=== PATIENT | male | born 1955 | race Caucasian/White ===

== ENCOUNTER → 2021-03-04 | Outpatient (CLI) | payer MEDICARE ==
[~2021-03-04] MED LIST: ALLO100 PO; ASPI325; COLC.6 PO; COLCHICINE0.6 MG PO; COLCRYS0.6 MG MT; CYCL10 PO; Coumadin5 MG PO; ENOX100I SC; ENOX120I SC; HYDACE5; HYDACE5 PO; INDO50 PO; Indomethacin50 MG PO; LISHYD2012 PO; Lisinopril2.5 MG; METPRE4DP PO; NAPR375; NAPR500 PO; NAPR550 PO; Naprosyn375 MG PO; Naprosyn500 MG PO; Norco 10-325 T1 EACH PO; Norco 5-325 Ta1 EACH PO; Percocet 5-3251 EACH PO; QUIN324; QUIN325; SIMV10; SIMV10 PO; SIMVASTATIN; Ultram50 MG PO; WARF2.5 PO; WARF5 PO
[2021-03-04 15:49] LABS: Bun/Creatinine Ratio 17.2 (12.0-20.0); Calcium, Blood 8.6 mg/dL (8.5-10.1); Creatinine, Blood 2.85 mg/dL (0.60-1.20); Potassium, Blood 4.1 mmol/L (3.5-5.5)
== END | disposition home or self-care (01) ==
LOC: LAB SHORT 15:39 → LAB 15:39
PROVIDERS: Physician Assistant Surgical
DX: R22.40 Localized swelling, mass and lump, unspecified lower limb (principal)
CPT/HCPCS: 80048

== ENCOUNTER → 2021-05-21 | Outpatient (CLI) | payer MEDICARE ==
[2021-05-21 10:37] LABS: BASOPHILS ABSOLUTE AUTO 0.03 K/mm3 (0.00-0.23); BASOPHILS PERCENT AUTO 1 % (0-2); EOSINOPHILS ABSOLUTE AUTO 0.13 K/mm3 (0.00-0.68); EOSINOPHILS PERCENT AUTO 3 % (0-6); Hematocrit 37.5 % (37.0-53.0); Hemoglobin 12.6 g/dL (13.5-17.5); IMMATURE GRAN ABSOLUTE AUTO 0.02 K/mm3 (0.00-0.10); IMMATURE GRAN PERCENT AUTO 0 % (0-1); LYMPHOCYTES ABSOLUTE AUTO 1.17 K/mm3 (0.84-5.20); LYMPHOCYTES PERCENT AUTO 22 % (21-46); MONOCYTES ABSOLUTE AUTO 0.56 K/mm3 (0.16-1.47); MONOCYTES PERCENT AUTO 11 % (4-13); Mean Corpuscular HGB 32.1 pg (26.0-34.0); Mean Corpuscular HGB Conc 33.6 g/dL (31.5-36.5); Mean Corpuscular Volume 96 fL (80-100); Mean Platelet Volume 9.1 fL (9.1-12.4); NEUTROPHILS ABSOLUTE AUTO 3.39 K/mm3 (1.96-9.15); NEUTROPHILS PERCENT AUTO 64 % (41-73); Platelet Count 250 K/mm3 (150-400); RDW Coefficient Variation 13.3 % (11.7-14.2); Red Blood Cell Count 3.92 M/mm3 (4.30-5.90)
[2021-05-21 10:55] LABS: Albumin, Blood 4.1 g/dL (3.4-5.0); Bilirubin, Total 0.6 mg/dL (0.1-1.0); Bun/Creatinine Ratio 18.5 (12.0-20.0); Calcium, Blood 9.1 mg/dL (8.5-10.1); Creatinine, Blood 1.57 mg/dL (0.60-1.20); Potassium, Blood 3.7 mmol/L (3.5-5.5); Thyroid Stimulating Hormone 0.912 uIU/mL (0.360-4.800); Total Protein, Blood 8.1 g/dL (6.4-8.2)
== END | disposition home or self-care (01) ==
LOC: LAB SHORT 10:30 → LAB 10:30
PROVIDERS: Physician Assistant Medical
DX: N17.9 Acute kidney failure, unspecified (principal); R60.9 Edema, unspecified; R53.83 Other fatigue
CPT/HCPCS: 80053; 83880; 84443; 85025; 85379

== ENCOUNTER 2021-08-27 20:09 | Inpatient (IN) | payer MEDICARE ==
[~2021-08-27] VITALS: Ht 170.2 cm; Wt 70.2 kg
[2021-08-27 20:51] LABS: BASOPHILS ABSOLUTE AUTO 0.03 K/mm3 (0.00-0.23); BASOPHILS PERCENT AUTO 0 % (0-2); EOSINOPHILS ABSOLUTE AUTO 0.01 K/mm3 (0.00-0.68); EOSINOPHILS PERCENT AUTO 0 % (0-6); Hematocrit 39.2 % (37.0-53.0); IMMATURE GRAN ABSOLUTE AUTO 0.12 K/mm3 (0.00-0.10); IMMATURE GRAN PERCENT AUTO 1 % (0-1); LYMPHOCYTES PERCENT AUTO 5 % (21-46); MONOCYTES ABSOLUTE AUTO 0.82 K/mm3 (0.16-1.47); MONOCYTES PERCENT AUTO 5 % (4-13); Mean Corpuscular HGB 30.7 pg (26.0-34.0); Mean Corpuscular HGB Conc 33.2 g/dL (31.5-36.5); Mean Corpuscular Volume 93 fL (80-100); Mean Platelet Volume 9.6 fL (9.1-12.4); NEUTROPHILS ABSOLUTE AUTO 13.42 K/mm3 (1.96-9.15); NEUTROPHILS PERCENT AUTO 89 % (41-73); Platelet Count 497 K/mm3 (150-400); RDW Coefficient Variation 13.4 % (11.7-14.2); RDW Standard Deviation 45.6 fL (35.1-46.3); Red Blood Cell Count 4.23 M/mm3 (4.30-5.90)
[2021-08-27 20:56] LABS: Source, Urine Clean Catch
[2021-08-27 20:57] LABS: Bilirubin, Urine Neg (Neg); Blood, Urine 5+ (Neg); Glucose Qualitative, Urine Neg (Neg); Ketones, Urine 1+ (Neg); Leukocyte Esterase, Urine 3+ (Neg); Nitrite, Urine Neg (Neg); Protein, Urine 3+ (Neg); Specific Gravity, Urine 1.015 (1.003-1.022); Urobilinogen, Urine NORM (Normal)
[2021-08-27 21:03] LABS: Appearance, Urine Cloudy (Clear); Color, Urine Brown (P-Yellow)
[2021-08-27 21:04] LABS: Alanine Aminotransfer (ALT/SGP 24 U/L (12-78); Albumin, Blood 2.8 g/dL (3.4-5.0); Albumin/Globulin Ratio 0.5 (0.8-1.8); Alk Phos 66 U/L (50-136); Anion Gap 14 mmol/L (6-16); Aspartate Aminotrans (AST/SGOT 31 U/L (12-37); Bilirubin, Total 0.9 mg/dL (0.1-1.0); Blood Urea Nitrogen 142 mg/dL (8-24); CO2, Blood 17 mmol/L (21-32); Calcium, Blood 9.1 mg/dL (8.5-10.1); Chloride, Blood 101 mmol/L (98-108); Creatinine, Blood 3.02 mg/dL (0.60-1.20); Ethanol (Alcohol), Blood, Med <3 mg/dL; Globulin, Blood 5.9 g/dL (2.2-4.0); Glomerular Filtration Rate 21 (60-); Glucose, Blood 141 mg/dL (70-99); Potassium, Blood 4.6 mmol/L (3.5-5.5); Sodium, Blood 132 mmol/L (136-145); Total Protein, Blood 8.7 g/dL (6.4-8.2)
[2021-08-27 21:05] LABS: Amorphous Heavy (0-Heavy); Bacteria Many /hpf; Mucus Light (0-Heavy); Red Blood Cells, Urine 25-50 /hpf (0-2); Squamous Epithelial Cells Few /hpf (Few)
[2021-08-27 21:09] LABS: U Amphetamine Screen Not Detected; U Barbituate Screen Not Detected; U Benzodiazapine Screen Not Detected; U Buprenorphine Screen Not Detected; U Cannabinoids Screen Not Detected; U Cocaine Screen Not Detected; U Methadone Screen Not Detected; U Methamphetamine Screen Not Detected; U Opiates Screen Not Detected; U Oxycodone Screen Not Detected; U Phencyclidine Screen Not Detected; U Propoxyphene Screen Not Detected
[2021-08-27 21:42] LABS: Creatine Kinase MB 27.6 ng/mL (0.0-3.6); Creatine Kinase MB Index 3.8 (0.0-4.0); Troponin I 0.091 ng/mL (0.000-0.040)
[2021-08-27 22:30] LABS: International Normalized Ratio 1.31; Prothrombin Time Results 13.5 Sec (9.7-11.5)
[2021-08-28 00:03] LABS: Influenza A, PCR NEGATIVE (NEGATIVE); Influenza B, PCR NEGATIVE (NEGATIVE); Resp Syncytial Virus, PCR NEGATIVE (NEGATIVE)
[2021-08-28 00:04] LABS: SARS-Cov-2 (COVID-19) PCR, MMC POSITIVE (NEGATIVE)
--- NOTE | 2021-08-28 05:59 | NUR ---
SHIFT SUMMARY ASSUMED CARE OF PT AT 0200. PT IS ALERT BUT ONLY ORIENTED TO SELF AND LOCATION. PT REPEATS HIMSELF CONSTANTLY; SAYING "MY FEET ARE COLD" AND "IM THIRSTY, GIVE ME WATER". PT WAS IN SINUSE AT 85 WHEN HE INITIALLY ARRIVED BUT CONVERTED TO AFIB WITH RVR. LOPRESSOR GIVEN WITH NO RESULT. HOSPITALIST HENNA WAS CALLED AND ORDERED CARDIZEM PUSH AND ORAL METOPROLOL. THIS WAS EFFECTED AND PT CONVERTS CAK TO SINUS IN THE 70'S. LUNG SOUNDS DIMINISHED, REMAINED ON RA. PT IS INCONTIENT OF URINE; URINE IS OUL SMELLING, DARK, AND CLOUDY. PT GIVEN BED BATH. PT BILATERAL EXTREMITIES ARE WARM UNTIL THE FEET WHICH ARE COOL TO TOUCH. FEET ARE DISCOLORED PURPLE, PEDAL PULSES HEARD ON DOPPLER. CALL LIGHT IN REACH, BED IN LOWEST POSITION.
[2021-08-28 08:18] LABS: Hematocrit 33.4 % (37.0-53.0); Hemoglobin 11.2 g/dL (13.5-17.5); Mean Corpuscular HGB 30.8 pg (26.0-34.0); Mean Corpuscular HGB Conc 33.5 g/dL (31.5-36.5); Mean Corpuscular Volume 92 fL (80-100); Mean Platelet Volume 9.6 fL (9.1-12.4); Platelet Count 382 K/mm3 (150-400); RDW Coefficient Variation 13.2 % (11.7-14.2); RDW Standard Deviation 44.5 fL (35.1-46.3); Red Blood Cell Count 3.64 M/mm3 (4.30-5.90); White Blood Cell Count 18.22 K/mm3 (4.00-11.30)
[2021-08-28 08:39] LABS: Albumin, Blood 2.4 g/dL (3.4-5.0); Albumin/Globulin Ratio 0.5 (0.8-1.8); Bun/Creatinine Ratio 42.3 (12.0-20.0); Calcium, Blood 8.4 mg/dL (8.5-10.1); Creatinine, Blood 2.98 mg/dL (0.60-1.20); Globulin, Blood 4.9 g/dL (2.2-4.0); Total Protein, Blood 7.3 g/dL (6.4-8.2)
[2021-08-28 10:45] LABS: Source, Urine Foley catheter
--- NOTE | 2021-08-28 11:00 | NUR ---
PATIENT ALERT TO SELF AND AWARE HE IS IN HOSPITAL. UNABLE TO ANSWER OTHER QUESTIONS. BILATERAL COMMERCIAL DIVER STRENGTH. FOLLOWING DIRECTIONS. PERRLA. NUMBNESS/TINGLING BILATERAL LOWER LEGS. ABLE TO TURN SELF IN BED. YELLS OUT, NOT USING CALL LIGHT. ON ROOM AIR, DENIES SOB. SATING ABOVE 94%. TELE SHOWING SINUS RHYTHM WITH HR 80'S. BP STABLE. EDEMA BILATERAL LOWER EXTREMITIES. BLE PURPLE/RED/PINK IN COLOR. VERY WARM TO TOUCH AND PAINFUL AT TIMES. PATIENT STATES THEY FEEL EXTREMLY COLD. PICTURES IN CHART. NOT INTERESTED IN BREAKFAST. DRINKING WATER AND JUICE. COMPLAINS OF SOME BLADDER PAIN. NICHOLAS CATHETER PLACED THIS AM. FOUL ORDER WITH SEDIMENT, NYASIA/RED IN COLOR. ATTENDS IN PLACE. HEPARIN AND NS INFUSING AT THIS TIME. WILL CONTINUE TO MONITOR.
[2021-08-28 11:14] LABS: Appearance, Urine Turbid (Clear); Bilirubin, Urine Neg (Neg); Blood, Urine 5+ (Neg); Color, Urine Amber (P-Yellow); Glucose Qualitative, Urine Neg (Neg); Ketones, Urine Neg (Neg); Leukocyte Esterase, Urine 3+ (Neg); Nitrite, Urine Neg (Neg); Protein, Urine 3+ (Neg); Specific Gravity, Urine 1.015 (1.003-1.022); Urobilinogen, Urine NORM (Normal)
[2021-08-28 11:23] LABS: Red Blood Cells, Urine 50-100 /hpf (0-2)
[2021-08-28 11:24] LABS: Amorphous Heavy (0-Heavy); Bacteria Many /hpf; Squamous Epithelial Cells Few /hpf (Few); Triple Phosphate Crystals Few /hpf
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
[2021-08-29 04:13] LABS: Hematocrit 28.3 % (37.0-53.0); Hemoglobin 9.2 g/dL (13.5-17.5); Mean Corpuscular HGB 30.6 pg (26.0-34.0); Mean Corpuscular HGB Conc 32.5 g/dL (31.5-36.5); Mean Corpuscular Volume 94 fL (80-100); Mean Platelet Volume 9.8 fL (9.1-12.4); Platelet Count 272 K/mm3 (150-400); RDW Coefficient Variation 13.4 % (11.7-14.2); RDW Standard Deviation 46.1 fL (35.1-46.3); Red Blood Cell Count 3.01 M/mm3 (4.30-5.90); White Blood Cell Count 10.73 K/mm3 (4.00-11.30)
[2021-08-29 04:35] LABS: Anti-Xa UFH, PHA Monitoring 0.6 IU/mL; D-Dimer, Quantitative 11.09 mg/L FEU (0.00-0.52)
[2021-08-29 04:43] LABS: Alanine Aminotransfer (ALT/SGP 39 U/L (12-78); Albumin, Blood 2.1 g/dL (3.4-5.0); Albumin/Globulin Ratio 0.5 (0.8-1.8); Alk Phos 48 U/L (50-136); Anion Gap 8 mmol/L (6-16); Aspartate Aminotrans (AST/SGOT 103 U/L (12-37); Bilirubin, Total 0.8 mg/dL (0.1-1.0); Blood Urea Nitrogen 116 mg/dL (8-24); Bun/Creatinine Ratio 38.4 (12.0-20.0); CO2, Blood 19 mmol/L (21-32); Chloride, Blood 108 mmol/L (98-108); Cholesterol 107 mg/dL (50-200); Creatinine, Blood 3.02 mg/dL (0.60-1.20); Globulin, Blood 4.5 g/dL (2.2-4.0); Glomerular Filtration Rate 21 (60-); Glucose, Blood 71 mg/dL (70-99); HDL Cholesterol 36 mg/dL (>39); LDL/HDL RATIO 1.6; Low Density Lipoprotein Chol 59 mg/dL (0-110); Potassium, Blood 4.1 mmol/L (3.5-5.5); Sodium, Blood 135 mmol/L (136-145); Total Protein, Blood 6.6 g/dL (6.4-8.2); Triglycerides 61 mg/dL (30-160); Very Low Density Lipoprot Chol 12 mg/dL (6-32)
--- NOTE | 2021-08-29 05:56 | NUR ---
SHIFT SUMMARY NO ACUTE CHANGES THIS SHIFT. PT ALERT TO SELF, CAN STATE HES IN A HOSPITAL BUT NOT WHICH ONE. SP02>92% ON RA. TELEMETRY SHOWS NSR/SINUS OSKAR, HR 50'S-80'S. BP SOFT AT START OF SHIFT, EVENING DOSE OF METOPROLOL HELD. PT DENIED PAIN, THOUGH GRIMACED/MOANED LIKE HE WAS. DENIED PAIN MEDICATION. C/O OF COLD FEET AND BEING COLD ALL OVER. WARM BLANKETS GIVEN. NICHOLAS CATHETER DRAINING DARK RED FLUID TO GRAVITY. NO CLOTS/SEDIMENT NOTED. NO BM THIS SHIFT. HGB DECREASED FROM 11.2 TO 9.2. PHARMACY CALLED TO ASK IF PT WAS BLEEDING. NOTIFIED PHARMACIST OF RED URINE. PHARMACIST PLACED CALL TO MD AGUILLON. MD AGUILLON WITH ORDERS TO CONTINUE HEPARIN AT CURRENT RATE. NS INFUSED PER EMAR. HEPARIN INFUSED PER EMAR. CALL LIGHT IN REACH. PT SLEPT OFF AND ON T/O SHIFT. CIWA OF 6-7.
[2021-08-29 07:51] LABS: Hematocrit 28.5 % (37.0-53.0); Hemoglobin 9.2 g/dL (13.5-17.5)
--- NOTE | 2021-08-29 08:30 | NUR ---
UPDATE PT CONVERTS FROM NSR TO AFIB 140'S. PT MEDICATED WITH PO METOPROLOL PER ORDERS. DR. NORRIS AWARE. WILL MEDICATED WITH IV LOPRESSOR IF HR STAYS ABOVE 120'S. NICHOLAS PATENT AND DRAINING NYASIA BLOOD TINGED URINE. DR. NORRIS NOTIFIED. PLAN TO CONTINUE HEP GTT AND CONSULT DR. YANCEY. PER DR. NORRIS WE WILL WAIT TO CONSULT NAYE UNTIL PT AND FAMILY MEETS WITH PALLIATIVE CARE. CIWA OF 8. WILL CONTINUE TO MONITOR CLOSELY
--- NOTE | 2021-08-29 14:07 | NUR ---
SUMMARY of multiple case conferences with bedside RN, kiln charger, Dr, family and pt starting at 0830 this am until now. Pt was admitted yesterday after he finally allowed a family member to call 911. On admission he had severe sepsis, UTI, altered mental status (somewhat long standing), critical limb iscemia with pain, ARF and covid + without resp s/s. He had been falling a lot at home and EMT's had been to home three weeks earlier and found him in the same spot on this visit. Pt was severely dehydrated also. He is provided a room but does not have a caregiver available in the home of his sister's 's home. His ALFONSO, Gurinder's current , Yesenia has been the person who has been most involved in attempting to get pt medical care for the past couple of years. Pt has abused etoh and cocaine for years per family. 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 He was started on heparin and antibiotics for UTI and sepsis in ER. Currently he is showing signs of bleeding in urine. beef grader contacted me early this am with hx and update on conversations with pt and family. When I visited pt he asked me where he was. When I told him, he asked how he got here. He was able to tell me his name and . He said he wanted to see his brother, Frantz. Family confirms that he does not have a brother, Frantz. They state that they cared for his mother in their home on hospice and are familiar with EOL care and goals. They are clear that in their 70 and 80's they are not able to care for Colt in their home. When I attempted to discuss goals of care with Colt he is clear in saying his #1 goal is comfort. He states he doesn't want any procedures, testing or surgery. He states repeatedly, "I know I am in a pitiful state" with some expletives added in. I do not believe he is able to cognitively reason out his complex medical situation, consequences of decisions etc. Yesenia PRATHER states he has not been able to make clear medical or financial decisions or fend for himself for years. She requests and pt as much as he can understand also requests comfort care and EOL care instead of further work up and intervention. Pt is crying out in pain, localized in lower legs. He is chilled and shaking and reports being freezing despite multiple warmed blankets and room temp as high as it will go. Pt is thirsty and drank approx 10 oz of water with assist for me. He states he is hungry but declined food that was in the room that I offered. After visit I reported to RN, beef grader and DR. MAYORGA to medicate for pain per eMar. I called sister who again requests comfort care and to visit. VO obtained and entered for comfort care, including beer on meal trays. Later when Yesenia and Gurinder arrived I met and spoke with them in person and then assisted in getting them into isolation room to visit Colt. He was sleeping and looked much more comfortable than he had when I visited him an hour earlier. Ivis instructed that they may get a call from a pulmonary care nurse re: d/c planning and that if we were able to get him comfortable, that he may be transferred to another facility or senior care with hospice support. Also, instructed that if pt was declining rapidly, we may not be able to transfer and that our goal would be to keep him comfortable and in a safe setting. Family expressed appreciation for the care Colt is receiving. Pt also expressed gratitude and said thank you many times while I was in the room with him. Plan daily visits for s/s management and support to pt, family and staff.
--- NOTE | 2021-08-29 14:18 | NUR ---
UPDATE PT TRANSITIONED TO COMFORT CARE. BED ASSIGNMENT PROVIDED ON THE MEDICAL FLOOR. REPORT GIVEN TO MEDICAL FLOOR RN. PT TO BE TAKEN UP BY BED
--- NOTE | 2021-08-29 23:14 | NUR ---
PT sleeping comfortably but needed to be turned & medicated with 1 mg IV ativan & 10 ml roxinol for bilat le pain. PT has large waterfilled wounds bilat feet. Covid 19 positive PT on room air without dyspnea. RX helpful. navarro cath draining misti cloudy urine with sediment
--- NOTE | 2021-08-30 02:32 | NUR ---
PT on comfort care covid 19 UTI sepsis sleeping quietly appears comfortable on room air.
--- NOTE | 2021-08-30 10:09 | NUR ---
Brief comfort care visit and case conf with pt's bedside RN. Pt is sleeping soundly and did not wake when I stepped into the room. Reviewed medications available for s/s management and prev 12-16 hours with RN. She reports good pain management and no signs of active etoh w/d noted. Pt does not demonstrate any nonverbal indicators of pain, restlessness, anxiety or distress while sleeping at this time. Nonverbal indicators of pain, agitation, anxiety and w/ w/d s/s reviewed with RN, due to pt not being a reliable historian or stonework tracer of s/s. During RN's assessment he would only say he wanted more water when she asked questions. Water was provided.
--- NOTE | 2021-08-30 18:49 | NUR ---
SHIFT SUMMARY- PT IS OBTUNDED THIS SHIFT. HE HAS NOT EATEN THIS SHIFT. HE IS RECIEVING PAIN MEDICATIONS NEEDED. FAMILY AT BEDSIDE THIS SHIFT. HIS NICHOLAS IS PATIENT AND DRAINING. BED IN THE LOW POSITION AND CALL LIGHT IS WITHIN REACH.
--- NOTE | 2021-08-30 23:47 | NUR ---
PT medicated for pain & anxiety with helpful effect. comfort care continues
--- NOTE | 2021-08-31 02:19 | NUR ---
PT premedicated for turning & personal care with helpful effect. Large fluid filled blisters bilat feet lower leg wounds. No oral intake. Covid 19 positive, PT on room air.
--- NOTE | 2021-08-31 06:58 | NUR ---
PT appears comfortable on PRN comfort care.
--- NOTE | 2021-08-31 11:32 | NUR ---
UPDATED, TAWANDA, ON PATIENT CONDITION.
--- NOTE | 2021-08-31 15:53 | NUR ---
NONVERBAL. DOES MOAN WHEN TURNED, BUT GOES BACK TO SLEEPING AND LOOKS COMFORTABLE AFTER TURNING. MEDICATED X 1 FOR AIR HUNGER/PAIN WITH GOOD RESULTS. LARGE BLISTERS BLE W/RT FOOT BLISTER POPPED. NO INTAKE TODAY. NICHOLAS DRAINING CLEAR YELLOW URINE. WCTM
--- NOTE | 2021-08-31 22:14 | NUR ---
COMFORT: PATIENT IS RESTING WITH EYE'S CLOSED. PATIENT RESPONDS ONLY TO TURNING OTHERWISE NON VERBAL. NICHOLAS IS PATENT FOR AN NYASIA URINE. NICHOLAS AND ORAL CARE ARE GIVEN WITH T&P.
--- NOTE | 2021-08-31 23:51 | NUR ---
COMFORT: PATIENT CONTINUES TO REST COMFORTABLY. ORAL CARE AND T&P GIVEN.
--- NOTE | 2021-09-01 04:11 | NUR ---
COMFORT: PATIENT CONTINUES TO REST COMFORTABLY, PATIENT REMAINS NON VERBAL.
--- NOTE | 2021-09-01 04:13 | NUR ---
COMFORT: PATIENT SCORES A 4 ON FLACC SCALE. ROXANOL 20 MG WAS GIVEN FOR S/S OF PAIN.
--- NOTE | 2021-09-01 07:20 | NUR ---
SHIFT SUMMARY: PATIENT ONLY RESPONSIVE TO PAIN ONLY. MORPHINE WAS GIVEN X1 WITH GOOD EFFECT. YU IS PATENT FOR MILVIA NYASIA URINE.
--- NOTE | 2021-09-01 11:01 | NUR ---
PATIENT HAD VERY FAINT HEART RATE, NO CHEST RISE. DYANI CAME IN TO [facility] AND PATIENT PASSED AT 1100. NOTIFIED. PALLIATIVE CARE NOTIFIED TO SEE WHO NEXT OF KIN IS AND IF PREFERENCE TO HOME. CHARTER PILOT KENDALL HERNANDEZ.
--- NOTE | 2021-09-01 11:38 | NUR ---
YU Nur PATIENT IN YELLOW GOWN AWAITING TRANSPORT. PALLIATIVE CARE NOTIFIED NEXT OF KIN.
== END 2021-09-01 11:00 | DRG 871 ==
LOC: ER 20:09 → ERHOLD 08-28 01:22 → PCU 08-28 01:22 → MEDS 08-29 14:37
PROVIDERS: Emergency Medicine; Internal Medicine; ADMIT Internal Medicine
DX: A41.51 Sepsis due to Escherichia coli [E. coli] (principal); U07.1 COVID-19; K85.90 Acute pancreatitis without necrosis or infection, unspecified; G92.8 Other toxic encephalopathy; N39.0 Urinary tract infection, site not specified; M62.82 Rhabdomyolysis; Z66 Do not resuscitate; Z51.5 Encounter for palliative care; N17.9 Acute kidney failure, unspecified; E87.2 Acidosis; E87.1 Hypo-osmolality and hyponatremia; I48.20 Chronic atrial fibrillation, unspecified; E86.0 Dehydration; R65.20 Severe sepsis without septic shock; R77.8 Other specified abnormalities of plasma proteins; I25.10 Atherosclerotic heart disease of native coronary artery without angina pectoris; I10 Essential (primary) hypertension; M10.9 Gout, unspecified; I70.229 Atherosclerosis of native arteries of extremities with rest pain, unspecified extremity; F10.20 Alcohol dependence, uncomplicated; Z79.899 Other long term (current) drug therapy; Z98.890 Other specified postprocedural states; Z86.718 Personal history of other venous thrombosis and embolism
CPT/HCPCS: 0241U; 36415; 70450; 71045; 73700; 76770; 80053; 80061; 81001; 82140; 82550; 82553; 82947; 83605; 83690; 83735; 83880; 84145; 84484; 85014; 85018; 85025; 85027; 85379; 85520; 85610; 85730; 86140; 87040; 87077; 87086; 87186; 93005; 93010; 93926; 96361; 96365; 96375; 96376; 99285-25; A9270; C9113; G0480; J0696; J1644; J2060; J2405; J3411; J3475; J7030; J7042; J7120